=== PATIENT | male | born 1960 | race African-American/Black ===

== ENCOUNTER 2022-03-03 12:32 | Inpatient (IN) | payer MEDICAID, OTHER ==
[~2022-03-03] VITALS: Ht 180.3 cm; Wt 97.7 kg
[2022-03-03] MEDS ORDERED: cloNIDine HCL 0.1 MG TAB PO ONE (12:45)
[2022-03-03 14:03] LABS: Basophils # (auto) 0 10 ^3/uL (0-0.2); Basophils % (auto) 0.9 % (0.0-2.0); Eosinophils # (auto) 0.2 10 ^3/uL (0-0.8); Eosinophils % (auto) 3.8 % (0.0-7.0); Hemoglobin 16.9 g/dL (13.5-17.5); Lymphocytes # (auto) 1.1 10 ^3/uL (0.4-5.4); Lymphocytes % (auto) 26.7 % (10.0-50.0); Mean Corpuscular Hgb Conc. 34.5 g/dL (32.0-36.0); Monocytes # (auto) 0.3 10 ^3/uL (0-1.3); Monocytes % (auto) 8.2 % (0.0-12.0); Neutrophils # (auto) 2.4 10 ^3/uL (1.6-8.6); Neutrophils % (auto) 60.4 % (37.0-80.0); Nucleated Red Blood Cells % 0.8 %; Red Blood Cells 5.63 10^6/uL (4.5-5.90); Red Cell Distribution Width 13.8 % (11.8-14.3)
[2022-03-03 14:19] LABS: Albumin 3.9 g/dL (3.4-5.0); BUN/Creatinine Ratio 8.3; Potassium 4.1 mmol/L (3.5-5.1)
[2022-03-03 14:23] LABS: Bilirubin, Total 0.8 mg/dL (0.2-1.0); Total Protein 7.3 g/dL (6.4-8.2)
[2022-03-03] MEDS ORDERED: NITROGLYCERIN 0.4 MG SL TAB SL PRN (17:00)
[2022-03-03] MEDS ORDERED: MORPHINE SULFATE INJECTION 2 MG/ML SYRG IV PRN ×2 (17:00→20:45)
[2022-03-03 20:00] VITALS: BP 106/72
[2022-03-03] MEDS ORDERED: DOCUSATE SOD 100 MG CAP PO PRN (20:45)
[2022-03-03] MEDS ORDERED: PANTOPRAZOLE 40 MG/10 ML VIAL INJ IV ONE (20:45)
[2022-03-03] MEDS ORDERED: hydrALAZINE HCL 25 MG TAB PO PRN (20:45)
[2022-03-03] MEDS ORDERED: LORazepam 0.5 MG TAB PO PRN (20:45)
[2022-03-03] MEDS ORDERED: HCTZ 25 MG TAB PO ONE (20:45)
[2022-03-03] MEDS ORDERED: BENAZEPRIL HCL 10 MG TAB PO ONE (20:45)
[2022-03-03] MEDS ORDERED: ONDANSETRON HCL 4 MG/2 ML VIAL IV PRN (20:45)
[2022-03-03] MEDS ORDERED: ACETAMINOPHEN 325 MG TAB PO PRN (20:45)
[2022-03-03] MEDS ORDERED: MECLIZINE HCL 25 MG TAB PO PRN (20:45)
[2022-03-03] MEDS ORDERED: NIFEdipine ER 30 MG TAB PO ONE (20:45)
[2022-03-03 20:48] LABS: Cholesterol 152 mg/dL (< 200)
[2022-03-03 20:51] LABS: HDL Cholesterol 41 mg/dL (40-59); LDL Cholesterol 97 mg/dL (< 100); Triglycerides 104 mg/dL (< 150)
[2022-03-03 21:15] LABS: Magnesium 2.2 mg/dL (1.6-2.6); Phosphorus 2.6 mg/dL (2.5-4.90)
[2022-03-03] MEDS ORDERED: HYDROcodone-ACET 5/325MG TAB PO PRN (21:15)
[2022-03-03 21:36] VITALS: BP_SYST 106
[2022-03-03] MEDS: ATORVASTATIN 20 MG TAB PO SCH (22:28)
[2022-03-03 23:46] LABS: INR 1.06 (0.9-1.15); Partial Thromboplastin Time 27.8 sec (23.6-33.0)
[2022-03-04] MEDS ORDERED: OMEP-434 PO (04:39)
[2022-03-04 05:00] VITALS: BP 114/73
[2022-03-04 07:09] LABS: Basophils # (auto) 0 10 ^3/uL (0-0.2); Basophils % (auto) 0.8 % (0.0-2.0); Eosinophils # (auto) 0.2 10 ^3/uL (0-0.8); Eosinophils % (auto) 5.4 % (0.0-7.0); Hematocrit 44.7 % (41.0-53.0); Hemoglobin 15.9 g/dL (13.5-17.5); Mean Corpuscular Hemoglobin 30.6 pg (28.0-32.0); Mean Corpuscular Hgb Conc. 35.4 g/dL (32.0-36.0); Mean Corpuscular Volume 86.3 fL (80.0-100.0); Monocytes # (auto) 0.4 10 ^3/uL (0-1.3); Monocytes % (auto) 10.8 % (0.0-12.0); Neutrophils # (auto) 1.9 10 ^3/uL (1.6-8.6); Nucleated Red Blood Cells % 0.1 %; Red Blood Cells 5.18 10^6/uL (4.5-5.90); Red Cell Distribution Width 13.6 % (11.8-14.3); White Blood Cell 3.5 10^3/uL (4.4-10.8)
[2022-03-04 07:24] LABS: Calcium 8.5 mg/dL (8.5-10.1); Magnesium 2.2 mg/dL (1.6-2.6); Potassium 4.3 mmol/L (3.5-5.1); Uric Acid 5.2 mg/dL (3.5-7.2)
[2022-03-04 07:29] LABS: Albumin 3.4 g/dL (3.4-5.0); BUN/Creatinine Ratio 12.7; Bilirubin, Total 0.7 mg/dL (0.2-1.0); CRP High Sensitivity 0.02 mg/dL (< 0.3); Phosphorus 3.8 mg/dL (2.5-4.90); Total Protein 6.6 g/dL (6.4-8.2)
[2022-03-04 07:36] LABS: INR 1.1 (0.9-1.15); Partial Thromboplastin Time 29.1 sec (23.6-33.0)
[2022-03-04 08:51] VITALS: BP 117/76
[2022-03-04] MEDS: ASPirin 81 mg TAB PO SCH (09:27)
[2022-03-04] MEDS: ENOXAPARIN SOD 40 MG/0.4 ML SYRINGE SC SCH (09:27)
[2022-03-04] MEDS: PANTOPRAZOLE 40 MG/10 ML VIAL INJ IV SCH (09:28)
[2022-03-04] MEDS: NIFEdipine ER 30 MG TAB PO SCH (09:35)
[2022-03-04] MEDS: HCTZ 25 MG TAB PO SCH (09:35)
[2022-03-04] MEDS: BENAZEPRIL HCL 10 MG TAB PO SCH (10:00)
[2022-03-04 10:22] LABS: Alcohol, Urine < 3.0 mg/dL (0-10); Barbiturate Scree,Urine NEGATIVE (NEGATIVE); Benzodiazephine Screen, Urine NEGATIVE (NEGATIVE); Cannabinoid Screen, Urine NEGATIVE (NEGATIVE); Cocaine Screen, Urine NEGATIVE (NEGATIVE); Opiate Scree,Urine NEGATIVE (NEGATIVE); Protein, Urine 8.2 mg/dL (0.0-11.9)
[2022-03-04 10:25] LABS: Amphetamine Screen, Urine NEGATIVE (NEGATIVE); Phencyclidine Screen, Urine NEGATIVE (NEGATIVE)
[2022-03-04 10:26] LABS: Urine Bacteria NONE SEEN /hpf (None Seen); Urine Blood Negative /uL (Negative); Urine Specific Gravity 1.016 (1.001-1.035); Urine WBC 1 /hpf (0 - 3)
[2022-03-04 12:51] VITALS: BP 122/80
[2022-03-04 17:13] VITALS: BP 122/80
[2022-03-04 20:00] VITALS: BP 132/76
[2022-03-04 22:00] VITALS: BP 132/76
[2022-03-04] MEDS: ATORVASTATIN 20 MG TAB PO SCH (22:09)
[2022-03-05 04:38] VITALS: BP 128/83
[2022-03-05] MEDS: PANTOPRAZOLE 40 MG/10 ML VIAL INJ IV SCH (08:41)
[2022-03-05] MEDS: ENOXAPARIN SOD 40 MG/0.4 ML SYRINGE SC SCH (08:42)
[2022-03-05] MEDS: ASPirin 81 mg TAB PO SCH (08:44)
[2022-03-05 09:06] VITALS: BP 131/81
[2022-03-05] MEDS: HCTZ 25 MG TAB PO SCH (09:30)
[2022-03-05] MEDS: BENAZEPRIL HCL 10 MG TAB PO SCH (09:40)
[2022-03-05] MEDS ORDERED: AML5T PO (09:49)
[2022-03-05] MEDS ORDERED: SIMV-8 PO (09:50)
[2022-03-05] MEDS: NIFEdipine ER 30 MG TAB PO SCH (09:50)
[2022-03-05 13:16] VITALS: BP 120/82
[2022-03-05 17:28] VITALS: BP 130/85
[2022-03-05] MEDS: ATORVASTATIN 20 MG TAB PO SCH (21:21)
[2022-03-05 21:46] VITALS: BP 130/85
[2022-03-06 04:43] VITALS: BP 129/74
[2022-03-06] MEDS ORDERED: MECL25CH38 PO (08:21)
[2022-03-06 09:00] VITALS: BP 124/95
[2022-03-06] MEDS: PANTOPRAZOLE 40 MG/10 ML VIAL INJ IV SCH (09:54)
[2022-03-06] MEDS: ASPirin 81 mg TAB PO SCH (09:54)
[2022-03-06] MEDS: NIFEdipine ER 30 MG TAB PO SCH (09:55)
[2022-03-06] MEDS: BENAZEPRIL HCL 10 MG TAB PO SCH (09:55)
[2022-03-06] MEDS: HCTZ 25 MG TAB PO SCH (09:55)
[2022-03-06] MEDS: ENOXAPARIN SOD 40 MG/0.4 ML SYRINGE SC SCH (09:55)
[2022-03-06 10:04] VITALS: BP 124/95
== END 2022-03-06 11:00 | disposition home or self-care (01) | DRG 111 ==
LOC: ER 12:32 → TELE 16:56 → TELE-CENTR 18:42
PROVIDERS: ADMIT Hospitalist; ATTEND Family Medicine
DX: H81.10 Benign paroxysmal vertigo, unspecified ear (principal); I11.9 Hypertensive heart disease without heart failure; E66.9 Obesity, unspecified; I16.0 Hypertensive urgency; E78.5 Hyperlipidemia, unspecified; F17.210 Nicotine dependence, cigarettes, uncomplicated; H66.92 Otitis media, unspecified, left ear; H93.12 Tinnitus, left ear; K21.9 Gastro-esophageal reflux disease without esophagitis; R73.03 Prediabetes; R00.1 Bradycardia, unspecified; R55 Syncope and collapse; Z20.822 Contact with and (suspected) exposure to COVID-19; Z83.3 Family history of diabetes mellitus; Z82.49 Family history of ischemic heart disease and other diseases of the circulatory system; Z71.6 Tobacco abuse counseling; Z68.30 Body mass index [BMI] 30.0-30.9, adult
CPT/HCPCS: 36415; 70450; 70480; 70551; 71045; 80053; 80061; 80307; 81001; 82550; 82728; 83036; 83615; 83690; 83735; 83880; 84100; 84156; 84443; 84484; 84550; 85025; 85379; 85610; 85652; 85730; 86141; 87040; 87086; 93005; 93306; 93886; C9113; G0378